=== PATIENT | female | born 1945 | race Caucasian/White ===

== ENCOUNTER 2021-08-18 07:58 | Day surgery (SDC) | payer MEDICARE, OTHER ==
[2021-08-18] MEDS ORDERED: fentaNYL 100 MCG/2 ML SDV IV ONE (07:59)
[2021-08-18] MEDS ORDERED: Midazolam 1 MG/ML 2 ML SDV IV ONE (07:59)
[2021-08-18] MEDS ORDERED: Lactated Ringers 1,000 ML IV PRN (08:00)
[2021-08-18] MEDS: Sodium Chloride 0.9% 10 ML Syringe FLUSH PRN (08:32)
[2021-08-18] MEDS: acetaZOLAMIDE 500 MG Cap.ER PO ONE (10:14)
== END 2021-08-18 10:35 | disposition home or self-care (01) ==
LOC: FB.SDS 07:58
PROVIDERS: ATTEND Ophthalmology
DX: H25.813 Combined forms of age-related cataract, bilateral (principal); H18.453 Nodular corneal degeneration, bilateral; H16.223 Keratoconjunctivitis sicca, not specified as Sjogren's, bilateral; H02.831 Dermatochalasis of right upper eyelid; H02.834 Dermatochalasis of left upper eyelid; H35.363 Drusen (degenerative) of macula, bilateral; H52.03 Hypermetropia, bilateral; H52.223 Regular astigmatism, bilateral; R63.4 Abnormal weight loss; F41.9 Anxiety disorder, unspecified; Z86.16 Personal history of COVID-19
CPT/HCPCS: A9270-GY; J2250; J3010; J3490; V2632

== ENCOUNTER 2021-09-01 07:33 | Day surgery (SDC) | payer MEDICARE, OTHER ==
[~2021-09-01 07:33] MED LIST: Lactated Ringers 1,000 ML IV PRN; Sodium Chloride 0.9% 10 ML Syringe FLUSH PRN
[2021-09-01] MEDS ORDERED: fentaNYL 100 MCG/2 ML SDV IV ONE (07:34)
[2021-09-01] MEDS ORDERED: Midazolam 1 MG/ML 2 ML SDV IV ONE (07:34)
[2021-09-01] MEDS ORDERED: acetaZOLAMIDE 500 MG Cap.ER PO ONE (09:30)
== END 2021-09-01 10:25 | disposition home or self-care (01) ==
LOC: FB.SDS 07:33
PROVIDERS: ATTEND Ophthalmology
DX: H25.813 Combined forms of age-related cataract, bilateral (principal); H18.4 Corneal degeneration; H16.223 Keratoconjunctivitis sicca, not specified as Sjogren's, bilateral; H02.831 Dermatochalasis of right upper eyelid; H02.834 Dermatochalasis of left upper eyelid; H35.363 Drusen (degenerative) of macula, bilateral; H52.03 Hypermetropia, bilateral; H52.223 Regular astigmatism, bilateral; F41.9 Anxiety disorder, unspecified; I10 Essential (primary) hypertension
CPT/HCPCS: A9270-GY; J2250; J3010; V2632